=== PATIENT | female | born 1990 | race Caucasian/White ===

== ENCOUNTER 2017-04-18 23:50 | Emergency (ER) | payer MEDICAID ==
--- NOTE | 2017-04-19 00:34 | Emergency Department Record ---
History of Present Illness - General Chief Complaint: Abdominal Pain Stated Complaint: ABDOMINAL PAIN Time Seen by Provider: 04/19/17 00:10 Source: Patient Mode of Arrival: Ambulatory Limitations: No limitations - History of Present Illness Initial Comments: pt has had ap for weeks w nausea. no c/d. no uti symptoms MD Complaint: Abdominal pain Onset/Timin -: Week(s) Location: Diffuse Radiation: None Migration to: LUQ, RUQ, LLQ, RLQ Severity: Moderate Quality: Cramping, Sharp Consistency: Constant Improves With: Eating Worsens With: Nothing Context: Other Associated Symptoms: Anorexia, Constipation, Diarrhea, Nausea Treatments Prior to Arrival: Antacids, Other - Related Data LMP (females 10-50): 3 weeks ago Previous Rx's Medication Instructions Recorded Metronidazole [Flagyl] 500 mg PO BID #14 tablet 04/19/17 Allergies Allergy/AdvReac Type Severity Reaction Status Date / Time No Known Drug Allergies Allergy Verified 04/18/17 23:54 Travel Screening - Travel/Exposure Within Last 30 Days Have you traveled within the last 30 days?: No Review of Systems Reviewed: No additional complaints except as noted below Constitutional: Reports: As per HPI. Denies: Chills, Fever, Malaise, Night sweats, Weakness, Weight change Eyes: Reports: As per HPI. Denies: Eye discharge, Eye pain, Photophobia, Vision change ENT: Reports: As per HPI. Denies: Congestion, Dental pain, Ear pain, Epistaxis , Hearing loss, Throat pain Respiratory: Reports: As per HPI. Denies: Cough, Dyspnea, Hemoptysis, Stridor, Wheezes Cardiovascular: Reports: As per HPI. Denies: Arrhythmia, Chest pain, Dyspnea on exertion, Edema, Murmurs, Orthopnea, Palpitations, Paroxysmal nocturnal dyspnea, Rheumatic Fever, Syncope Endocrine: Reports: As per HPI. Denies: Fatigue, Heat or cold intolerance, Polydipsia, Polyuria Gastrointestinal: Reports: As per HPI. Denies: Abdominal pain, Constipation, Diarrhea, Hematemesis, Hematochezia, Melena, Nausea, Vomiting Genitourinary: Reports: As per HPI. Denies: Abnormal menses, Discharge, Dyspareunia, Dysuria, Frequency, Hematuria, Incontinence, Retention, Urgency Musculoskeletal: Reports: As per HPI. Denies: Arthralgia, Back pain, Gout, Joint swelling, Myalgia, Neck pain Skin: Reports: As per HPI. Denies: Bruising, Change in color, Change in hair/ nails, Lesions, Pruritus, Rash Neurological: Reports: As per HPI. Denies: Abnormal gait, Confusion, Headache, Numbness, Paresthesias, Seizure, Tingling, Tremors, Vertigo, Weakness Psychiatric: Reports: As per HPI. Denies: Anxiety, Auditory hallucinations, Depression, Homicidal thoughts, Suicidal thoughts, Visual hallucinations Hematological/Lymphatic: Reports: As per HPI. Denies: Anemia, Blood Clots, Easy bleeding, Easy bruising, Swollen glands Past Medical History - SOCIAL HISTORY Smoking Status: Never smoker Alcohol Use: None Drug Use: None - RESPIRATORY Hx Respiratory Disorders: No - CARDIOVASCULAR Hx Cardio Disorders: No - NEURO Hx Neuro Disorders: No - GI Hx GI Disorders: No - Hx Genitourinary Disorders: Yes Hx UTI: No - ENDOCRINE Hx Endocrine Disorders: No - MUSCULOSKELETAL Hx Musculoskeletal Disorders: No - PSYCH Hx Psych Problems: No - HEMATOLOGY/ONCOLOGY Hx Hematology/Oncology Disorders: No Family Medical History Any Significant Family History?: Yes Hx Diabetes: Grandparents Hx Heart Disease: Grandparents Hx Stroke: Grandparents Physical Exam - General General Appearance: Alert, Oriented x3, Cooperative, Mild distress - Head Head exam: Normal inspection - Eye Eye exam: Normal appearance, PERRL, EOMI Pupils: Normal accommodation - ENT ENT exam: Normal exam, Mucous membranes moist, Normal external ear exam, Normal orophraynx Ear exam: Normal external inspection. negative: External canal tenderness Nasal Exam: Normal inspection. negative: Discharge, Sinus tenderness Mouth exam: Normal external inspection, Tongue normal Teeth exam: Normal inspection. negative: Dental caries Throat exam: Normal inspection. negative: Tonsillar erythema, Tonsillar exudate - Neck Neck exam: Normal inspection, Full ROM. negative: Tenderness - Respiratory Respiratory exam: Normal lung sounds bilaterally. negative: Respiratory distress - Cardiovascular Cardiovascular Exam: Regular rate, Normal rhythm, Normal heart sounds - GI/Abdominal GI/Abdominal exam: Soft, Normal bowel sounds, Tenderness - Rectal Rectal exam: Deferred - exam: Adnexal tenderness (L), Adnexal tenderness (R), cervical motion tenderness - Extremities Extremities exam: Normal inspection, Full ROM, Normal capillary refill. negative: Tenderness - Back Back exam: Reports: Normal inspection, Full ROM. Denies: Muscle spasm, Rash noted, Tenderness - Neurological Neurological exam: Alert, CN II-XII intact, Normal gait, Oriented X3 - Psychiatric Psychiatric exam: Normal affect, Normal mood - Skin Skin exam: Dry, Intact, Normal color, Warm Course Vital Signs 04/18/17 23:55 Temperature 99.4 F Pulse Rate 94 H Respiratory 20 Rate Blood Pressure 135/105 Pulse Ox 98 Medical Decision Making - Lab Data Result diagrams: 04/19/17 00:30 04/19/17 00:30 Disposition Disposition: Discharge Clinical Impression: Bacterial vaginosis Abdominal pain Qualifiers: Abdominal location: lower abdomen, unspecified Qualified Code(s): R10.30 - Lower abdominal pain, unspecified Disposition: Home, Self-Care Condition: (1) Good Instructions: Abdominal Pain (ED), Bacterial Vaginosis (ED) Additional Instructions: follow up with family doctor and manager internet. return sooner if worse. Prescriptions: Metronidazole [Flagyl] 500 mg PO BID #14 tablet Forms: Patient Portal Access Quality - Quality Measures Quality Measures: N/A - Blood Pressure Screening Does Patient Have Any of the Following: No Blood Pressure Classification: Hypertensive Reading Systolic Measurement: 135 Diastolic Measurement: 105 Screening for High Blood Pressure: < First Hypertensive BP, F/U Documented > [ G8950] First Hypertensive Follow-up Interventions: Follow-up with rescreen GT 1 day and LT 4 weeks.
[2017-04-19 00:38] LABS: BASO % 0.4 % (0-6); EOS % 1.5 % (0-6); GRAN % 63.8 % (47-80); HEMATOCRIT 34.7 % (35.0-47.0); HEMOGLOBIN 11.1 gm/dl (11.6-16.0); LYMPH % 24.7 % (16-45); MEAN CELL VOLUME 83.8 fl (81-97); MEAN CORPUSCULAR HEMOGLOBIN 26.8 pg (27-33); MEAN PLATELET VOLUME 9.9 fl (7.4-10.4); MONO % 9.6 % (0-9); PLATELET COUNT 462 K/uL (130-400); RED BLOOD COUNT 4.14 M/uL (3.80-5.40); RED CELL DISTRIBUTION WIDTH 14.8 % (11.5-14.5); WHITE BLOOD COUNT W/O DIFF 10.6 K/uL (4.2-12.2)
[2017-04-19 00:51] LABS: URINE APPEARANCE CLEAR; URINE BILIRUBIN NEGATIVE (NEGATIVE); URINE BLOOD NEGATIVE (NEGATIVE); URINE COLOR YELLOW; URINE GLUCOSE (UA) NEGATIVE (NEGATIVE); URINE KETONE NEGATIVE (NEGATIVE); URINE LEUKOCYTE ESTERASE NEGATIVE (NEGATIVE); URINE NITRITE NEGATIVE (NEGATIVE); URINE PROTEIN NEGATIVE (NEGATIVE); URINE UROBILINOGEN 0.2 E.U./dL (0.20 - 1.00)
[2017-04-19 00:52] LABS: ALB/GLOB RATIO 1.4 (1.1-1.8); ALBUMIN 4.1 g/dL (4.0-5.0); ALKALINE PHOSPHATASE 107 U/L (35-104); ALT/SGPT 12 U/L (<33); AST/SGOT 14 U/L (10.0-35.0); BLOOD UREA NITROGEN 24.6 mg/dL (12.6-42.6); CREATININE 0.8 mg/dL (0.5-0.9); EST GLOMERULAR FILTRATION RATE > 60 mL/min; GLUCOSE,RANDOM 108 mg/dL (74-109); LIPASE 17 U/L (13-60)
[2017-04-19 00:52] LABS: HCG,QUALITATIVE URINE NEGATIVE (NEGATIVE)
[2017-04-19] MEDS: 0.9 % SODIUM CHLORIDE 1,000 ML BAG IV ONE (01:00)
[2017-04-19] MEDS: AZITHROMYCIN 500 MG TABLET PO ONE (01:56)
[2017-04-19] MEDS: CEFTRIAXONE 250 MG VIAL IM ONE (01:56)
--- NOTE | 2017-04-19 13:26 | CT SCAN REPORT ---
EXAM: CT OF THE ABDOMEN AND PELVIS WITHOUT CONTRAST HISTORY: MID ABDOMINAL PAIN. TECHNIQUE: Sequential axial images were obtained from the diaphragms through the ischiorectal fossa without intravenous or oral contrast administration. FINDINGS: The visualized lung bases appear normal. The nonopacified liver, gallbladder, pancreas, and spleen appear normal. The adrenal glands and kidneys appear normal. There is a horseshoe kidney. No evidence of obstructive uropathy. The small and large bowel appears normal. There is a small amount of free fluid in the cul-de-sac. The uterus and adnexal structures are normal. The appendix is visualized and appears normal. The osseous structures are normal. IMPRESSION: 1. HORSESHOE KIDNEY. 2. SMALL AMOUNT OF FREE FLUID IN THE CUL-DE-SAC. THIS IS LIKELY PHYSIOLOGIC. 3. THE APPENDIX IS VISUALIZED AND APPEARS NORMAL. JOB NUMBER: [id number] MTDD
== END 2017-04-19 02:19 | disposition home or self-care (01) ==
LOC: ER 23:50
DX: N76.0 Acute vaginitis (principal); R10.30 Lower abdominal pain, unspecified; R19.7 Diarrhea, unspecified; R11.0 Nausea
CPT/HCPCS: 99284 ×2; 96372; 96361; 83690; 85025; 80053; 81003; 81025; 74176; Q0111; J0696; 87210; J7030

== ENCOUNTER 2018-11-14 00:38 | Emergency (ER) | payer SELFPAY ==
[2018-11-14] MEDS ORDERED: MAGNESIUM HYDROXIDE/AL HYDROX 30 ML, LIDOCAINE VISC 2% 15ML 15 ML PO ONE ×2 (00:46)
--- NOTE | 2018-11-14 00:51 | Emergency Department Record ---
History of Present Illness - General Chief complaint: ENT Stated complaint: something stuck in throat for 3 days Time Seen by Provider: 11/14/18 00:42 Source: Patient Mode of Arrival: Ambulatory Limitations: No limitations - History of Present Illness Initial comments: 28 yo female presents to ED for evaluation of pain to the esophageal region after eating pizza 3 days ago. Patient reports she believes the crust of the pizza may have either scratched her throat or a small piece "is stuck". Patient reports being able to eat/drink foods following the onset of her symptoms without difficulty, denies SOB or feeling of an airway obstruction, and reports that she is speaking normally. Patient denies health problems at her baseline. MD complaint: Sore throat Onset/Timin -: Days(s) Location: Throat Severity: Moderate Consistency: Constant Improves with: None Worsens with: Eating - Related Data Home Medications Medication Instructions Recorded Confirmed Last Taken No Home Med [NO HOME MEDS] 11/14/18 11/14/18 Unknown Allergies Allergy/AdvReac Type Severity Reaction Status Date / Time No Known Drug Allergies Allergy Verified 04/18/17 23:54 Review of Systems Constitutional: Denies: Chills, Fever, Malaise, Night sweats Eyes: Denies: Eye discharge, Eye pain ENT: Reports: Throat pain. Denies: Congestion, Ear pain, Epistaxis Respiratory: Denies: Cough, Dyspnea Cardiovascular: Denies: Chest pain, Dyspnea on exertion, Palpitations, Paroxysmal nocturnal dyspnea Endocrine: Denies: Fatigue, Heat or cold intolerance Gastrointestinal: Denies: Abdominal pain, Nausea, Vomiting Genitourinary: Denies: Incontinence, Retention Musculoskeletal: Denies: Arthralgia, Back pain Skin: Denies: Bruising, Change in color, Change in hair/nails Neurological: Denies: Abnormal gait, Confusion, Headache, Seizure Psychiatric: Denies: Anxiety Hematological/Lymphatic: Denies: Anemia, Blood Clots Past Medical History - SOCIAL HISTORY Smoking Status: Never smoker Drug Use: None - RESPIRATORY Hx Respiratory Disorders: No - CARDIOVASCULAR Hx Cardio Disorders: No - NEURO Hx Neuro Disorders: No - GI Hx GI Disorders: No - Hx Genitourinary Disorders: Yes Hx UTI: No - ENDOCRINE Hx Endocrine Disorders: No - MUSCULOSKELETAL Hx Musculoskeletal Disorders: No - PSYCH Hx Psych Problems: No - HEMATOLOGY/ONCOLOGY Hx Hematology/Oncology Disorders: No Family Medical History Hx Diabetes: Grandparents Hx Heart Disease: Grandparents Hx Stroke: Grandparents Physical Exam - General General Appearance: Alert, Oriented x3, Cooperative, Mild distress, Anxious Limitations: No limitations - Head Head exam: Atraumatic, Normocephalic, Normal inspection Head exam detail: negative: Abrasion, Contusion, French's sign, General tenderness, Hematoma, Laceration - Eye Eye exam: Normal appearance. negative: Conjunctival injection, Periorbital swelling, Periorbital tenderness, Scleral icterus - ENT Ear exam: negative: Auricular hematoma, Auricular trauma Nasal Exam: negative: Active bleeding, Discharge, Dried blood, Foreign body Mouth exam: negative: Drooling, Laceration, Muffled voice, Tongue elevation - Neck Neck exam: Normal inspection. negative: Meningismus, Tenderness - Respiratory Respiratory exam: Normal lung sounds bilaterally. negative: Rales, Respiratory distress, Rhonchi, Stridor - Cardiovascular Cardiovascular Exam: Regular rate, Normal rhythm, Normal heart sounds - GI/Abdominal GI/Abdominal exam: Soft. negative: Rebound, Rigid, Tenderness - Rectal Rectal exam: Deferred - exam: Deferred - Extremities Extremities exam: Normal inspection. negative: Pedal edema, Tenderness - Back Back exam: Denies: CVA tenderness (R), CVA tenderness (L) - Neurological Neurological exam: Alert, Normal gait, Oriented X3 - Psychiatric Psychiatric exam: Normal affect, Normal mood - Skin Skin exam: Normal color. negative: Abrasion Type of lesion: negative: abrasion Course - Reevaluation(s) Reevaluation #1: 11/14/18 01:15 Patient was reassessed and reports improvement in her symptoms. Patient denies eating anything with bones when the injury occurred, and there is no evidence for esophageal obstruction in examination. Imaging does not appear indicated based on the patient's history and examination. Symptoms appear c/w esophageal abrasion. Patient appears stable for discharge with continued symptomatic care at home. Disposition Disposition: Discharge Clinical Impression: Esophageal abrasion Qualifiers: Encounter type: initial encounter Qualified Code(s): S27.818A - Other injury of esophagus (thoracic part), initial encounter Disposition: Home, Self-Care Condition: (2) Stable Instructions: Esophagitis (ED) Additional Instructions: Return to ED if your symptoms worsen or if you have any concerns. Follow-up with your family doctor in 3-5 days as directed. Forms: Patient Portal Access Time of Disposition: 01:16 Quality - Quality Measures Quality Measures: N/A - Blood Pressure Screening Does Patient Have Any of the Following: No Blood Pressure Classification: Hypertensive Reading Systolic Measurement: 148 Diastolic Measurement: 96 Screening for High Blood Pressure: < First Hypertensive BP, F/U Documented > [ G8950] First Hypertensive Follow-up Interventions: Referral to alternative/primary care provider.
== END 2018-11-14 01:24 | disposition home or self-care (01) ==
LOC: ER 00:38
DX: S27.818A Other injury of esophagus (thoracic part), initial encounter (principal); W22.8XXA Striking against or struck by other objects, initial encounter
CPT/HCPCS: 99282; 99283